=== PATIENT | female | born 1995 ===

== ENCOUNTER 2020-08-23 08:51 | Outpatient (REF) | payer MEDICARE, MEDICAID, SELFPAY ==
--- NOTE | 2020-08-23 15:16 | MHC.AU.P13 ---
Adult Audiological Evaluation Date of Visit: 08/23/20 Reason for Appointment: Annual audiological evaluation required by her care home/[facility]. Rula's corporate driver working with her today denies any concerns for Rula's hearing and denies any changes to her medical history. Does patient feel they have a hearing loss?: No Has hearing been tested previously?: Yes [place] [facility] [place] Normal hearing bilaterally. Medical History: Medical History: Seasonal allergies, Autism Spectrum Disorder Otoscopy: Right Ear: Unremarkable Left Ear: Significant cerumen build-up. Unable to view TM Tympanometry: Right Ear: Normal Middle Ear System (Type A) Left Ear: Normal Middle Ear System (Type A) Hearing Evaluation: Transducer(s) Used: Insert Earphones, Circumaural Headphones Method: Conditioned Play Audiometry Stimuli Used: Pure Tones Right Ear: Description of Hearing: Normal hearing from 250-8000 Hz. Left Ear: Description of Hearing: Normal hearing from 250-8000 Hz. Hearing threshold at 8000 Hz is 15 dBHL worse than the right ear and 25 dBHL worse than testing from last year. May be due to cerumen build-up. Speech Recognition Threshold (SRT): Method Used: Monitored Live Voice Stimuli Used: Spondee Words Right Ear: 10 dBHL Left Ear: 0 dBHL Word Discrimination: Method: Monitored Live Voice Word Lists Used: PBK Right Ear: 100% at 50 dBHL Left Ear: 100% at 50 dBHL Comparison: Compared to the most recent evaluation: Thresholds have decreased in the left ear. Compared to most recent evaluation: Decrease at 8000 Hz only. May be due to cerumen build-up. Recommendations: Recommendations: Audiological re-evaluation in one year. Recommendations (Other): Recommend use of earwax softening drops (i.e. Debrox, EarWax M.D.) to clear the left ear. Use three nights in a row every three months to help clear ears and prevent further build-up in both ears. Diagnosis: Primary Diagnosis: H61.22 Impacted Cerumen, Left Ear Secondary Diagnosis: H93.293 Abnormal Auditory Perception Services Performed: Services Performed: Conditioned Play Audiometry (CPT 30235) Speech Audiometry Threshold, with Speech Recognition (CPT 77185) Tympanometry (CPT 26658) Signature: Provider: Joslyn Menjivar, CCC-A
== END 2020-08-23 08:52 | disposition home or self-care (01) ==
LOC: HO.SH 08:51
PROVIDERS: PCP Internal Medicine; Referring Provider Internal Medicine; Visit Provider Internal Medicine
DX: H61.22 Impacted cerumen, left ear (principal); H93.293 Other abnormal auditory perceptions, bilateral
CPT/HCPCS: 92556; 92567; 92582

== ENCOUNTER 2021-05-18 13:24 | Outpatient (REF) | payer MEDICARE, MEDICAID, SELFPAY ==
--- NOTE | 2021-05-18 14:42 | MHC.AU.AEV ---
Adult Audiological Evaluation Date of Visit: 05/18/21 Reason for Appointment: Annual hearing evaluation as required by her [facility]. History of cerumen occlusions. Has hearing been tested previously?: Yes Previous Hearing Test Results: At this clinic on 08/23/2020- Normal hearing bilaterally. A slight decrease from the previous year was noted at 8000 Hz in the left ear; however, it was noted that this may have been a consequence of cerumen build-up in that ear. Ear History: Recent Ear Drainage: None Reported Recent Ear Pain: None Reported Recent Ear Infections: None Reported History of Ear Wax Buildup: Both Ears Medical History: Medical History: Seasonal allergies, Autism Spectrum Disorder Otoscopy: Right Ear: Unremarkable Left Ear: Unremarkable Tympanometry: Tympanometry performed due to: To assess integrity of the middle ear system Right Ear: Normal Middle Ear System (Type A) Left Ear: Hypercompliant Middle Ear System (Type Ad) Otoacoustic Emissions Frequency Range Used: 1.6-8 kHz Right Ear Results: Present 0620-7288 Hz, Slightly reduced 0995-8535 Hz Left Ear Results: Present 6161-3107 Hz, Slightly reduced 0322-7976 Hz Hearing Evaluation: Transducer(s) Used: Insert Earphones Method: Conventional Audiometry Stimuli Used: Pure Tones Right Ear: Description of Hearing: Normal hearing Left Ear: Description of Hearing: Normal hearing Speech Recognition Threshold (SRT): Method Used: Monitored Live Voice Stimuli Used: Spondee Words Right Ear: 10 dBHL Left Ear: 10 dBHL Word Discrimination: Method: Recorded Lists Word Lists Used:: W-22 Right Ear: 90% at 50 dBHL Left Ear: 90% at 50 dBHL Interpretation of Results: Hearing is within normal range bilaterally. The decrease that was previously seen in the left ear at 8000 Hz has resolved, suggesting that it was likely a consequence of the cerumen in the ear at that time. Mildy reduced OAEs noted in high frequencies of both ears. It does not appear to be impacting her hearing at this time, but should continue to be monitored. Recommendations: Audiological re-evaluation in one year. Diagnosis: Primary Diagnosis: H93.293 Abnormal Auditory Perception Signature: Provider: Joslyn Bravo, SHAY-A
== END 2021-05-18 13:25 | disposition home or self-care (01) ==
LOC: HO.SH 13:24
PROVIDERS: Visit Provider Internal Medicine
DX: H93.293 Other abnormal auditory perceptions, bilateral (principal)
CPT/HCPCS: 92552; 92556; 92567; 92587

== ENCOUNTER 2022-01-09 12:41 | Outpatient (REF) | payer MEDICARE, MEDICAID, SELFPAY ==
--- NOTE | 2022-01-09 16:48 | MHC.AU.ANR ---
Adult Audiological Evaluation Date of Visit: 01/09/22 Reason for Appointment: Annual audiological evaluation as required by [facility] and her care program. Rula and her accompanying staff deny any concerns for her hearing. They deny any changes to Rula's medical history since her last visit. Does patient feel they have a hearing loss?: No Has hearing been tested previously?: Yes [facility] [place], 05/18/2021- Normal hearing bilaterally. Normal middle-ear function in the right ear, slightly hypercompliant middle-ear system in the left ear. Present OAEs 4528-3000, and slightly reduced 3711-8670 Hz. [facility] [place], 08/23/2020- Normal hearing and normal middle-ear function bilaterally. [facility] [place], 09/11/2019- Normal hearing and normal middle-ear function bilaterally. Ear History: History of Ear Wax Buildup: Both Ears Medical History: Medical History: Seasonal allergies, Autism Spectrum Disorder Medication List: Trazodone/Desyrel, Quetiapine/Seroquel, Benztropine/Cogentin, Clonidine/Catapres, Lamotrigine/Lamictal, Clonazepam/Klonopin, Risperidone/Risperdal, Saline nasal spray, Loratadine/Claritin, Docusate/Colace, Tylenol, Ibuprofen, Flonase, Bacitracin, Delsym cough syrup, Debrox, Linzess/Linaclotide, Omeprazole Otoscopy: Right Ear: Unremarkable Left Ear: Unremarkable Tympanometry: Tympanometry performed due to: To assess integrity of the middle ear system Right Ear: Normal Middle Ear System (Type A) Left Ear: Normal Middle Ear System (Type A) Hearing Evaluation: Transducer(s) Used: Insert Earphones, Bone Conduction Method: Conventional Audiometry Stimuli Used: Pure Tones Right Ear: Description of Hearing: Normal hearing from 250-8000 Hz. Left Ear: Description of Hearing: Normal hearing from 250-8000 Hz. Speech Recognition Threshold (SRT): Method Used: Monitored Live Voice Stimuli Used: Spondee Words Right Ear: 10 dBHL Left Ear: 10 dBHL Word Discrimination: Method: Not performed at today's visit. Word Lists Used: Not performed at today's visit Comparison: Compared to the most recent evaluation: Hearing is stable. Interpretation of Results: Normal hearing and middle-ear function bilaterally. Clear ear canals bilaterally. Recommendations: No further audiological action is indicated at this time. Audiological re-evaluation if changes are noted. Diagnosis: Primary Diagnosis: H93.293 Abnormal Auditory Perception Services Performed: Services Performed: Pure Tone- Air (CPT 18786) Speech Audiometry Threshold (SRT/SAT) (CPT 10761) Tympanometry (CPT 41532) Signature: Provider: Joslyn Menjivar, CCC-A
== END 2022-01-09 12:42 | disposition home or self-care (01) ==
LOC: HO.SH 12:41
PROVIDERS: Visit Provider Internal Medicine
DX: Z01.118 Encounter for examination of ears and hearing with other abnormal findings (principal); H93.293 Other abnormal auditory perceptions, bilateral
CPT/HCPCS: 92552; 92555; 92567

== ENCOUNTER 2024-10-13 10:52 | Outpatient (REF) | payer MEDICARE, MEDICAID, SELFPAY | END 2024-10-13 10:53 | disposition home or self-care (01) | LOC: HO.SH 10:52 | PROVIDERS: Visit Provider Physician Assistant | DX: Z01.118 Encounter for examination of ears and hearing with other abnormal findings (principal); H93.293 Other abnormal auditory perceptions, bilateral | CPT/HCPCS: 92552 ==